=== PATIENT | female | born 1950 ===

== ENCOUNTER 2021-04-11 12:18 | Outpatient (CLI) | payer MEDICARE, BC, SELFPAY ==
[2021-04-11 12:45] LABS: Basophils Percent Auto 0.3 % (0.2-1.2); Eosinophils Absolute Auto 0.1 K/mm3 (0-0.3); Eosinophils Percent Auto 1.6 % (0-4.4); Hematocrit 39.5 % (37.0-47.0); Hemoglobin 13.1 g/dL (12.0-15.0); Immature Granulocyte Absolute 0.01 K/mm3 (0.00-0.031); Immature Granulocyte Percent A 0.3 % (0-0.5); Lymphocytes Absolute Auto 1.32 K/mm3 (0.9-3.2); Lymphocytes Percent Auto 35.9 % (18.3-44.2); Mean Corpuscular HGB Conc 33.2 g/dl (32-36); Mean Corpuscular Hemoglobin 30.3 pg (26-34); Mean Corpuscular Volume 91.4 fl (80-100); Mean Platelet Volume 10.2 fl (7.4-10.4); Monocytes Absolute Auto 0.4 K/mm3 (0.1-0.6); Monocytes Percent Auto 9.5 % (2.6-8.5); Neutrophils Absolute Auto 1.9 K/mm3 (1.3-6.7); Neutrophils Percent Auto 52.4 % (45.5-73.1); Platelet Count Result 234 k/mm3 (150-375); Red Blood Count 4.32 M/mm3 (4.2-5.4); Red Cell Distribution Width 12.9 % (11.5-14.5); White Blood Count 3.7 K/mm3 (4.5-10.0)
[2021-04-11 12:57] LABS: Alanine Aminotransferase 30 U/L (4-35); Albumin Level 4.5 g/dL (3.5-5.1); Alkaline Phosphatase 89 U/L (38-126); Anion Gap 4 mmol/L (8-16); Aspartate Amino Transferase 39 U/L (14-36); Bilirubin,Total 0.4 mg/dL (0.2-1.3); Blood Urea Nitrogen 11 mg/dL (7-17); Calcium 9.6 mg/dL (8.4-10.2); Carbon Dioxide 33 mmol/L (22-30); Chloride 100 mmol/L (98-107); Estimated Glomerular Filt Rate > 60; Glucose 104 mg/dL (65-110); Potassium 3.9 mmol/L (3.4-5.0); Sodium 137 mmol/L (137-145)
[2021-04-11 13:00] LABS: Iron 93 ug/dL (37-170)
[2021-04-11 13:09] LABS: Percent Iron Saturation 31 % (20-50)
[2021-04-11 14:15] LABS: Folic Acid > 20.0 ng/mL (2.76->20); Vitamin B12 > 1000.0 pg/mL (239-931)
[2021-04-13 19:08] LABS: Anti Nuclear Antibody Pattern Nuclear, Speckled
== END 2021-04-11 12:19 | disposition home or self-care (01) ==
LOC: ANHLAB 12:28
PROVIDERS: PCP Family Medicine; Visit Provider Internal Medicine Hematology & Oncology
DX: D64.9 Anemia, unspecified (principal); D72.819 Decreased white blood cell count, unspecified
CPT/HCPCS: 36415; 80053; 82607; 82728; 82746; 83540; 83550; 85025; 86038; 86039

== ENCOUNTER 2021-08-01 09:17 | Outpatient (CLI) | payer MEDICARE, BC, SELFPAY ==
--- NOTE | ~2021-08-01 | US_ITS ---
EXAMINATION: US abdomen complete DATE: 08/01/2021 10:03 INDICATION: Leukopenia TECHNIQUE: Multiple grayscale and Doppler ultrasound images of the abdomen were obtained. COMPARISON: None available FINDINGS: Bowel gas obscures visualization of the pancreas. The visualized portions of the pancreas a re unremarkable. The liver is normal with normal echogenicity and echotexture. No surface nodularity. Normal hepatopetal flow in the main portal vein. The gallbladder is normal with no abnormal wall thi ckening, pericholecystic fluid or stones. The normal common bile duct measures 3 mm. There was no son ographic Stover sign. The visualized portions of the aorta and inferior vena cava are normal. The right kidney measures 9.9 x 3.9 x 4.9 cm. The left kidney measures 9.9 x 4.8 x 4.3 cm. The kidney s demonstrate normal parenchymal echogenicity. There is no hydronephrosis. The spleen is normal in ap pearance and measures 8.1 cm. IMPRESSION: 1. No sonographic correlate for the patient's symptoms. Reviewed, dictated and finalized at location B.
== END 2021-08-01 09:18 | disposition home or self-care (01) ==
PROVIDERS: PCP Family Medicine; Visit Provider Internal Medicine Hematology & Oncology
DX: D72.819 Decreased white blood cell count, unspecified (principal)
CPT/HCPCS: 36415; 76700; 80053; 82607; 82728; 82746; 83540; 83550; 85025; 86038; 86039

== ENCOUNTER 2021-08-01 09:59 | Outpatient (CLI) | payer MEDICARE, BC, SELFPAY ==
[2021-08-01 10:24] LABS: Basophils Percent Auto 0.6 % (0.2-1.2); Eosinophils Percent Auto 1.2 % (0-4.4); Hematocrit 42.7 % (37.0-47.0); Hemoglobin 13.4 g/dL (12.0-15.0); Lymphocytes Absolute Auto 1.02 K/mm3 (0.9-3.2); Lymphocytes Percent Auto 30.4 % (18.3-44.2); Mean Corpuscular HGB Conc 31.4 g/dl (32-36); Mean Corpuscular Hemoglobin 30.2 pg (26-34); Mean Corpuscular Volume 96.4 fl (80-100); Mean Platelet Volume 10.6 fl (7.4-10.4); Monocytes Absolute Auto 0.3 K/mm3 (0.1-0.6); Monocytes Percent Auto 8.9 % (2.6-8.5); Neutrophils Percent Auto 58.9 % (45.5-73.1); Platelet Count Result 226 k/mm3 (150-375); Red Blood Count 4.43 M/mm3 (4.2-5.4); Red Cell Distribution Width 13.2 % (11.5-14.5); White Blood Count 3.4 K/mm3 (4.5-10.0)
[2021-08-01 12:59] LABS: Alanine Aminotransferase 22 U/L (4-35); Albumin Level 4.6 g/dL (3.5-5.1); Alkaline Phosphatase 100 U/L (38-126); Anion Gap 6 mmol/L (8-16); Aspartate Amino Transferase 37 U/L (14-36); Bilirubin,Total 0.3 mg/dL (0.2-1.3); Blood Urea Nitrogen 13 mg/dL (7-17); Calcium 9.3 mg/dL (8.4-10.2); Carbon Dioxide 31 mmol/L (22-30); Chloride 103 mmol/L (98-107); Estimated Glomerular Filt Rate > 60; Glucose 103 mg/dL (65-110); Potassium 3.8 mmol/L (3.4-5.0); Sodium 140 mmol/L (137-145)
[2021-08-01 13:09] LABS: Iron 99 ug/dL (37-170)
[2021-08-01 13:17] LABS: Percent Iron Saturation 32 % (20-50)
[2021-08-01 14:00] LABS: Folic Acid > 20.0 ng/mL (2.76->20)
[2021-08-04 11:07] LABS: Anti Nuclear Antibody Pattern Nuclear, Speckled
== END 2021-08-01 10:00 | disposition home or self-care (01) ==
LOC: ANHLAB 10:06
PROVIDERS: Visit Provider Internal Medicine Hematology & Oncology
DX: D64.9 Anemia, unspecified (principal); D72.819 Decreased white blood cell count, unspecified
CPT/HCPCS: 36415; 80053; 82607; 82728; 82746; 83540; 83550; 85025; 86038; 86039

== ENCOUNTER 2022-09-27 13:45 | Outpatient (CLI) | payer MEDICARE, BC, SELFPAY ==
--- NOTE | ~2022-09-27 | XR_ITS ---
EXAMINATION:XR cervical spine 4-5V DATE: 09/27/2022 14:15 INDICATION: Neck pain TECHNIQUE: AP, lateral, left and right oblique, lateral swimmers and odontoid views of the cervical s pine are provided. COMPARISON: None FINDINGS: 1-2 mm anterolisthesis C4 on C5 and 3 mm retrolisthesis C5 on C6, the latter contributing to mild luiza tral canal stenosis at this level. Odontoid is intact. Mild atlantoaxial osteoarthritis. Vertebral boo dy heights are normal. Moderate to severe disc height loss at C5-C6. There is moderate facet osteoart hritis on the right at C4-C5 and on the left at C3-C4 and C4-C5. Mild facet osteoarthritis at several additional levels on the left and right. There is severe uncovertebral osteoarthritis on the left an d moderate on the right at C5-C6. Mild uncovertebral osteoarthritis on the left at C4-C5. This contri butes to mild to moderate neural foraminal stenosis on the left at C5-C6 and mild on the left at C2-C 3 and C3-C4 and on the right at C3-C4 through C5-C6. Prevertebral soft tissues are normal. Visualized apices of lungs are clear. IMPRESSION: 1. 3 mm retrolisthesis C5 on C6 with moderate to severe associated disc height loss and uncovertebral osteoarthritis. 2. Mild spondylosis throughout the remainder of the cervical spine. Reviewed, dictated and finalized at location A.
== END 2022-09-27 13:46 | disposition home or self-care (01) ==
PROVIDERS: PCP Family Medicine; Visit Provider Family Medicine
DX: M54.2 Cervicalgia (principal); M85.88 Other specified disorders of bone density and structure, other site; M43.02 Spondylolysis, cervical region
CPT/HCPCS: 72050

== ENCOUNTER 2022-10-06 08:31 | Outpatient (CLI) | payer MEDICARE, BC, SELFPAY ==
--- NOTE | ~2022-10-06 | MR_ITS ---
EXAMINATION: MR cervical spine wo con DATE: 10/06/2022 09:32 INDICATION: Neck pain. TECHNIQUE: Magnetic resonance imaging (MRI) of the cervical spine was performed without intravenous c ontrast. COMPARISON: Cervical spine radiographs 09/27/2022, thyroid ultrasound 02/19/2018 FINDINGS: There are thyroid nodules measuring up to 13 mm, likely not clinically significant. There i s 2 mm anterolisthesis of C4 on C5 and 2 mm retrolisthesis of C5 on C6. Vertebral body heights are no rmal. There is mildly decreased disc height at C4-C5 and severely decreased disc height at C5-C6. The spinal cord signal intensity is normal. The following disc levels are specifically discussed: C2-C3: There is a central protrusion. There is no uncovertebral joint osteoarthritis. There is mild l eft facet joint osteoarthritis. There is no neural foraminal stenosis. There is no central canal sten osis. C3-C4: There is a central extrusion. There is no uncovertebral joint osteoarthritis. There is moderat e left facet joint osteoarthritis. There is mild left neural foraminal stenosis. There is no central canal stenosis. C4-C5: The disc is bulging. There is no uncovertebral joint osteoarthritis. There is severe right and mild left facet joint osteoarthritis. There is no neural foraminal stenosis. There is no central can al stenosis. C5-C6: The disc is bulging. There is severe bilateral uncovertebral joint osteoarthritis. There is mi ld bilateral facet joint osteoarthritis. There is moderate bilateral neural foraminal stenosis. There is no central canal stenosis. C6-C7: There is a central protrusion. There is no uncovertebral joint osteoarthritis. There is no fac et joint osteoarthritis. There is no neural foraminal stenosis. There is no central canal stenosis. C7-T1: The disc does not extend beyond the endplate margin. There is no uncovertebral joint osteoarth ritis. There is mild bilateral facet joint osteoarthritis. There is no neural foraminal stenosis. The re is no central canal stenosis. IMPRESSION: 1. Severe spondylosis at C5-C6 and mild spondylosis at other levels. Reviewed, dictated and finalized at location A.
== END 2022-10-06 08:32 | disposition home or self-care (01) ==
PROVIDERS: PCP Family Medicine; Visit Provider Family Medicine
DX: M54.2 Cervicalgia (principal); M43.02 Spondylolysis, cervical region
CPT/HCPCS: 72141

== ENCOUNTER 2024-07-31 08:13 | Outpatient (CLI) | payer MEDICARE, BC, SELFPAY ==
--- NOTE | ~2024-07-31 | US_ITS ---
US thyroid DATE: 07/31/2024 08:36 INDICATION: Nontoxic goiter TECHNIQUE: Real-time and color flow imaging of the thyroid gland COMPARISON: 02/04/2018 thyroid ultrasound FINDINGS: Right lobe: 5.7 x 2.0 x 2.0 cm right lobe dimension Heterogeneous echotexture and prominent increased vascularity 1.0 x 0.9 x 0.9 mm posterior mid to lower isoechoic circumscribed mass (TR 3); little interval change since 02/04/2018 Isthmus: 1.0 cm AP dimension Left lobe: 6.5 x 2.9 x 3.6 cm left lobe dimension Heterogeneous echotexture and prominent increased vascularity 1.7 x 1.5 x 1.1 cm posterior upper pole circumscribed hypoechoic mass (TR 4); this is stable in size, shape and echotexture since 02/04/2018 2.5 x 2.5 x 1.9 cm lower pole lobular hypoechoic mass with coarse calcifications (TR 5 highly suspici ous); this was measured at 1.9 x 2.2 x 1.9 cm on 02/04/2018. Ultrasound-guided fine-needle aspiration is recommended. IMPRESSION: Recommended ultrasound-guided fine-needle aspiration of lower pole left 2.5 cm TR 5 mass Reviewed, dictated and finalized at Location A. Reviewed, dictated and finalized at location A.
--- OUTSIDE RECORDS SUMMARY | 2024-07-31 08:23 | XMS_ITS | Clinical Summary ---
[facility] Address [address] [place] [address] Care Team Providers Care Spectroscopist Name Role Phone Eliud Cardoso MD Primary Care Provider [phone] Allergies No known active allergies Medications amLODIPine (NORVASC) 5 mg tablet Take 5 mg by mouth daily. Active valACYclovir (VALTREX) 500 mg tablet Take 500 mg by mouth 2 times daily. 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 Gender Identity Not on file Sexual Orientation Not on file Last Filed Vital Signs Vital Sign Reading Time Taken Comments Blood Pressure 158/92 08/18/2021 10:42 AM CDT Pulse 72 08/18/2021 10:42 AM CDT Temperature 36.4 C (97.5 F) 08/18/2021 10:42 AM CDT Respiratory Rate - - Oxygen Saturation 97% 08/18/2021 10:42 AM CDT Inhaled Oxygen Concentration - - Weight 59.9 kg (132 lb) 08/18/2021 10:42 AM CDT Height 157.5 cm (5' 2 ) 08/18/2021 10:42 AM CDT Body Mass Index 24.14 08/18/2021 10:42 AM CDT Plan of Treatment Health Maintenance Due Date Last Done Comments DTAP/TDAP/TD VACCINES (1 - Tdap) 01/01/1972 BREAST CANCER SCREENING 1992 COLORECTAL SCREENING 1997 Colorectal Cancer Screening 1997 FIT-DNA Q 3 years 1997 FIT/FOBT Q 1 year 1997 Flex Sig/CT Colonography Q 5 years 1997 PNEUMOCOCCAL VACCINE 50+ YEARS (1 of 1 - PCV) 01/01/20 03 ZOSTER VACCINE (1 of 2) 2002 OSTEOPOROSIS SCREENING 2017 INFLUENZA VACCINE (#1) 2023 RSV VACCINE (60+ or ) (1 - 1-dose 75+ series) 01/01/2028 Insurance MEDICARE PART A AND B Care Teams Spectroscopist Relationship Specialty Start Date End Date Eliud Cardoso MD [address] [place] [address] PCP - General Family Practice 04/11/21
== END 2024-07-31 08:14 | disposition home or self-care (01) ==
LOC: CHSIMG 08:14
PROVIDERS: PCP Family Medicine; Visit Provider Obstetrics & Gynecology
DX: E04.9 Nontoxic goiter, unspecified (principal)
CPT/HCPCS: 76536

== ENCOUNTER 2024-09-21 12:25 | Outpatient (CLI) | payer MEDICARE, BC, SELFPAY ==
--- NOTE | ~2024-09-21 | US_ITS ---
EXAMINATION: US FNA w image guidance DATE: 09/21/2024 13:18 INDICATION: Nontoxic thyroid goiter TECHNIQUE: A time-out was performed to verify the patient's name, date of , and procedure to be performed . The procedure and its benefits and risks were discussed with the patient. Risks specifically discus sed included bleeding and infection. The patient understood the risks and agreed to proceed. The neck was prepped and draped in the usual sterile manner. 2 mL 1% lidocaine was used for local anesthesia . 5 passes were made with a 25G needle into the lesion. Appropriate needle location was documented with continuous sonographic guidance. A sterile bandage was applied. There were no immediate compli cations. FINDINGS: Grayscale ultrasound images demonstrate biopsy needles advanced into a 3 cm solid hypoechoic nodule w ith lobular margins and with coarse shadowing internal calcifications at the junction of the left thy roid lobe and thyroid isthmus. IMPRESSION: 1. Successful ultrasound-guided fine needle aspiration of a 3 cm TI RADS 5 nodule at the junction of the left thyroid lobe and isthmus. Reviewed, dictated and finalized at location A. IMPRESSION: 1. Successful ultrasound-guided fine needle aspiration of a 3 cm TI RADS 5 nod ule at the junction of the left thyroid lobe and isthmus.
--- OUTSIDE RECORDS SUMMARY | 2024-09-21 12:32 | XMS_ITS | Clinical Summary ---
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 Gender Identity Not on file Sexual Orientation [...] Comments DTAP/TDAP/TD VACCINES (1 - Tdap) 01/01/1972 COLORECTAL SCREENING 1997 Colorectal Cancer Screening 1997 FIT-DNA Q 3 years 1997 FIT/FOBT Q 1 year 1997 Flex Sig/CT Colonography Q 5 years 1997 PNEUMOCOCCAL VACCINE 50+ YEARS (1 of 1 - PCV) 01/01/20 03 ZOSTER VACCINE (1 of 2) 2002 OSTEOPOROSIS SCREENING 2017 BREAST CANCER SCREENING 01/20/2022 01/20/2021 INFLUENZA VACCINE (#1) 2023 RSV VACCINE (60+ or ) (1 - 1-dose 75+ series) 01/01/2028 Insurance [facility] BLUE ACCESS/TRUE BLUE PPO MEDICARE PART A AND B Care Teams Machine Lay Out Worker Relationship Specialty Start Date End Date Eliud Cardoso MD [address] [place] [address] PCP - General Family Practice 04/11/21
== END 2024-09-21 12:26 | disposition home or self-care (01) ==
PROVIDERS: PCP Family Medicine; Visit Provider Otolaryngology
DX: E04.1 Nontoxic single thyroid nodule (principal)
CPT/HCPCS: 10005; 88172; 88173; 88177; 88305

== ENCOUNTER 2025-02-20 12:07 | Outpatient (CLI) | payer MEDICARE, BC, SELFPAY ==
--- OUTSIDE RECORDS SUMMARY | 2024-10-22 09:00 | XMS_ITS ---
Author Organization [facility] Address [address] [place], [place] [id number] Care Team Providers Care Ripening Room Hand Name Role Phone LOTUS SWAIN Unavailable [phone] Eliud Cardoso Unavailable Unavailable Allergies No Known Allergies REASON FOR VISIT Painful spot on bottom of foot Medications Medication SIG (Take, Route, Frequency, Duration) Notes Start Date End Date Status amLODIPine Benzoate 1 MG/ML 5 mL Orally Once a day Activ e Vital Signs Height 62.00 in 10/22/2024 Weight 140 lbs 10/22/2024 BMI 25.6 kg/m2 10/22/2024 Height-cm 157.48 cm 10/22/2024 Weight-kg 63.5 kg 10/22/2024 Encounters Encounter Location Date Provider Diagnosis [address] [id number] 10/22/2024 LOTUS SWAIN Hallux valgus (acquired), right foot M20.11 ; Acquired keratoderma L85.1 and Pain in right foot M79.671 Assessments Encounter Date Diagnosis (ICD Code) Assessment Notes Treatment Notes Treatment Clinical Notes Section Notes 10/22/2024 Hallux valgus (acquired), right foot (ICD-10 - M20.11) 10/22/2024 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) 10/22/2024 Pain in right foot (ICD-10 - M79.671) Plan Of Treatment No Information Progress Notes * DIEGO WINSLOW MDOB:1950 (74 yo F)Acc No.[id number]:10/22/2024 Progress Notes Patient: DIEGO CROCKETT Provider: Andrzej SWAIN :1950 A ge:73 Y S ex:Female Date:10/22/2024 Address:[address] [place], [place] [id number] Subjective: * Chief Complaints: * 1 . Painful spot on bottom of foot. * HPI: H PI: New Complaint P atient was last seen in our practice over three years ago., Patient complains of an issue to a bump under the right 5th digit. Patient states that her old orthotics might be the cause of the bump. She is interested in getting new orthotics. , MA: [facility]. * ROS: G eneral / Constitutional: Patient denies f atigue, chills, fever. P atient complains of p ain. M usculoskeletal: Patient denies n euroma, high arch feet/ cavus. P atient complains of j oint stiffness. P eripheral Vascular: Patient denies b lood clots in legs, ulceration of feet.? S kin: Patient denies u lcerations. P atient complains of s pot on bottom of foot. N eurologic: Patient denies l oss of strength. * Medical History: N o Reported Medical History.Medical History Verified. * Surgical History: H ysterectomy . * Hospitalization/Major Diagno stic Procedure: D enies Past Hospitalization. * Family History: F ather: PRN - Father: . M other: PRN - Mother: . B rother: SIB - Brother: . S ister: SIB - Sister: . * Social History: M igrated Social History: M igrated Social History: History of tobacco use : , Smoking Status : Never smoked. * Medications: T aking amLODIPine Benzoate 1 MG/ML Suspension 5 mL Orally Once a day , Medication List reviewed and reconciled with the patient * Allergies: N .K.D.A. Objective: * Vitals: S hoe Size: 9, Wt:140lbs, Wt-k.5 kg, Ht: 62.00 in, Ht-cm: 157.48 cm, BMI:25.6Index, Body Surface Area: 1.67. * Examination: C onstitutional: Constitutional T he patient is awake, alert, well developed, well groomed and well nourished. D ermatologic: Skin findings: b ilateral, Skin is thin, atrophic and lacking pedal hair. M usculoskeletal: Muscle Strength M uscle strength is 5/5 in regards to dorsiflexion, plantarflexion, inversion, and eversion in bilateral lower extremities. ? N eurologic: Gross sensation G ross sensation is intact to light touch..? V ascular: Dorsalis pedis pulse: b ilateral, 1/. Posterior tibial pulse: b ilaterally, 05/16. Capillary refill: b ilaterally, greater than 3 seconds.? Assessment: * Assessment: 1. H allux valgus (acquired), right foot - M20.11 (Primary) 2 . A cquired keratoderma - L85.1 3 . P ain in right foot - M79.671 Plan: * Treatment: * Billing Information: * Visit Code: 54752 Office Visit, New Pt., Level 3. * Procedure Codes: * Electronic signature of NELI SWAIN DPM on 02/20/2025 at 12:11 PM CDT Sign off status: Pending * Provider: Andrzej SWAIN Date: 0 10/22/2024 Generated for Vamshi lemon/Funmilayo/Primo on: 1 12:11 PM CDT History and Physical Notes * HPI (History of Present Illness) Category Sub-Category Detail Notes Category Not es HPI New Complaint Patient was last seen in our practice over three years ago., Patient complains of an issue to a bump under the right 5th digit. Patient states that her old orthotics might be the cause of the bump. She is interested in getting new orthotics. , MA: [facility] Examination Category Sub-Category Detail Notes Category Not es Constitutional Constitutional The patient is a wake, alert, well developed, well groomed and well nourished Dermatologic Skin findings: bilateral, Skin is thin, atrophic and lacking pedal hair Musculoskeletal Muscle Strength Muscle strength is 5/5 in regards to dorsiflexion, plantarflexion, inversion, and eversion in bilateral lower extremities Neurologic Gross sensation Gross sensation is intact to light touch. Vascular Dorsalis pedis pulse: bilateral, 1/4 Posterior tibial pulse: bilaterally, 1/4 Capillary refill: bilaterally, greater than 3 seconds
--- NOTE | ~2025-02-20 | MR_ITS ---
EXAMINATION: MR brain/brain stem wo/w con DATE: 02/20/2025 12:57 INDICATION: Memory loss. TECHNIQUE: Magnetic resonance imaging (MRI) of the brain and brainstem was performed without and with 10 mL MultiHance intravenous contrast. COMPARISON: None. FINDINGS: There is no intracranial hemorrhage, acute infarction, or abnormal intracranial mass lesion. The ventricles are normal in size. The orbits are normal. There is mild mucosal thickening in the paranasal sinuses. The mastoid air cells are normal. IMPRESSION: 1. Moderate nonspecific cerebral white matter disease, which likely represents chronic small vessel ischemic disease. Reviewed, dictated and finalized at location E.
--- OUTSIDE RECORDS SUMMARY | 2025-02-20 12:11 | XMS_ITS | Encounter Summary ---
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
--- OUTSIDE RECORDS SUMMARY | 2025-02-20 12:11 | XMS_ITS | Clinical Summary ---
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
--- OUTSIDE RECORDS SUMMARY | 2025-02-20 12:11 | XMS_ITS | Clinical Summary ---
Author Organization [facility] Address [address] [place] [address] Care Team Providers Care Casework Manager Name Role Phone Eliud Cardoso MD Primary Care Provide r Allergies No known active allergies Medications amLODIPine (NORVASC) 5 mg tablet Take 1 tablet (5 mg total) by mouth daily Active valACYclovir (VALTREX) 500 mg tablet Take 1 tablet (500 mg total) by mouth 2 (two) times a day Active Active Problems No known active problems Encounters Date Type Department Care Team Description 02/02/2025 10:04 AM CDT - 02/02/2025 11:59 PM CDT Hospital Encounter [facility] [address] [place] [address] [id number] Screening mammogram, encounter for Discharge Disposition: Discharge to home or self care from Last 3 Months Surgical History Surgery Date Site/Laterality Comments HYSTERECTOMY OOPHORECTOMY THYROID SURGERY Family History Medical History Relation Name Comments Breast cancer Father's Sister placido Ovarian cancer Neg Hx Thyroid cancer Neg Hx Relation Name Status Comments Father's Sister placido Social History Tobacco Use Types Packs/Day Years Used Date Smoking Tobacco: Never Smokeless Tobacco: Never Tobacco Cessation:Counseling Given: Not Answered Comments No Sex and Gender Information Value Date Recorded Sex Assigned at Not on file 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 Gender Identity Not on file Sexual Orientation Not on file Obstetrics History Para Term AB IAB SAB Ectopic Multiple Livin g Live Births 2 2 2 Date Outcome GA Total Labor Labor/2nd/3rd Weight Sex Type Anes PTL Morenita A1 A5 Name Clin Term Term Last Filed Vital Signs Vital Sign Reading Time Taken Comments Blood Pressure - - Pulse - - Temperature - - Respiratory Rate - - Oxygen Saturation - - Inhaled Oxygen Concentration - - Weight 54 kg (119 lb) 02/02/2025 10:23 AM CDT Height 154.9 cm (5' 1) 01/31/2024 9:38 AM CDT Body Mass Index 22.48 01/31/2024 9:38 AM CDT Plan of Treatment Health Maintenance Due Date Last Done Comments Colon Cancer Screening-Colonoscopy 1950 Depression Screening 1950 Fall Risk Assessment 1950 Hepatitis C Screening 1950 DTaP/Tdap/Td Vaccine (1 - Tdap) 01/01/1964 Hepatitis B Screening 1970 Zoster Vaccine (1 of 2) 2002 Well Visit 65+ 2017 Influenza Vaccine (#1) 2025 9, 02/12/2018, 02/13/2017, Additional history exists Osteoporosis Screening-Bone Density Scan 01/30/2026 01/31/2024, 01/26/2022, 01/15/2020, Additional history exists Breast Cancer Screening-Mammogram 02/02/2026 02/02/2025, 01/31/2024, 01/29/2023, Additional history exists Pneumococcal vaccine 65+ Completed 02/26/2019, 07/2017 Procedures Procedure Name Priority Date/Time Associated Diagnosis Comments SCREENING MAMMOGRAM BILATERAL W CARLOS Schedule Routine, Read Routine (OP Routine) 02/02/2025 10:27 AM CDT Screening mammogram, encounter for DEXA AXIAL SKELETON BONE DENSITY 1 OR MORE SITES Schedule Routine, Read Routine (OP Routine) 01/31/2024 9:36 AM CDT Asymptomatic menopausal state from Last 3 Months or Most Recently Relevant to Health Maintenance Results * Screening Mammogram Bilateral W Carlos (02/02/2025 10:27 AM CDT) Anatomical Region Laterality Modality Breast Bilateral Mammography Impressions 02/03/2025 2:40 PM CDT Bilateral No evidence of malignancy in either breast. OVERALL BI-RADS FINAL ASSESSMENT: 1 - Negative RECOMMENDATION: Recommend bilateral annual screening mammography. Narrative 02/03/2025 2:40 PM CDT EXAMINATION: Screening Mammogram Bilateral W Carlos: 02/02/2025 COMPARISON: Relevant prior studies available at the time of interpretation were reviewed, including the most recent mammogram on: 01/31/2024. TECHNIQUE: Mammography was performed with 2D and 3D digital breast tomosynthesis (DBT) images. CAD was utilized. BREAST PARENCHYMAL COMPOSITION: There are scattered areas of fibroglandular density. FINDINGS: Bilateral There is no suspicious mass, calcification, or architectural distortion in either breast. 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 LEFT HIP: Total BMD is 0.708 g/cm2 T-score is -1.9 This is decrease in comparison to prior exam which is not statistically significant. Femoral neck BMD is 0.597 g/cm2 T-score is -2.3 FRAX: 10 year risk for a major osteoporotic fracture is 13 %, 10 year risk for a hip fracture is 3.0 % IMPRESSION: Low Bone Mass. REFERENCE: Bone mineral density: T-Score: Normal (T-score above or = -1.0) Low bone mass (T-score between -1.0 and -2.5) replaces the previously used term osteopenia Osteoporosis (T-score = or below -2.5) Z-Score: Within the expected range for age (Z-score above -2.0) Below the expected range for age (Z-score is -2.0 or below) Please see below follow up recommendations. Medical evaluation for secondary causes of low bone mineral density may be appropriate. FRAX is a World Health Organization validated fracture risk assessment tool that calculates a person's 10 year probability of a major osteoporosis related fracture and hip fracture. According to the National Osteoporosis Foundation guidelines, postmenopausal women and men age 50 or older with low bone mass and a 10 year probability of a major osteoporosis related fracture = or greater than 20% or a 10 year probability of a hip fracture = or greater than 3% should be considered for pharmacological treatment for the prevention of osteoporosis. For further information, including treatment recommendations, please refer to the 2019 ISCD Official Positions (http://www.iscd.org) and the NOF's Clinician's Guide to Prevention and Treatment of Osteoporosis (http://www.nof.org/professionals/clinical-guidelines) THIS IS AN ELECTRONICALLY VERIFIED FINAL REPORT 01/31/2024 8:38 PM - Electronically signed by Delio Carroll M.D. 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 LEFT HIP: Total BMD is 0.708 g/cm2 T-score is -1.9 This is decrease in comparison to prior exam which is not statistically significant. Femoral neck BMD is 0.597 g/cm2 T-score is -2.3 FRAX: 10 year risk for a major osteoporotic fracture is 13 %, 10 year risk for ahip fracture is 3.0 % IMPRESSION: Low Bone Mass. REFERENCE: Bone mineral density: T-Score: Normal (T-score above or = -1.0) Low bone mass (T-score between -1.0 and -2.5) replaces thepreviously used term osteopenia Osteoporosis (T-score = or below -2.5) Z-Score: Within the expected range for age (Z-score above -2.0) Below the expected range for age (Z-score is -2.0 or below) Please see below follow up recommendations. Medical evaluation forsecondary causes of low bone mineral density may be appropriate. FRAX is a World Health Organization validated fracture risk assessmenttool that calculates a person's 10 year probability of a major osteoporosisrelated fracture and hip fracture. According to the National OsteoporosisFoundation guidelines, postmenopausal women and men age 50 or older with low bonemass and a 10 year probability of a major osteoporosis related fracture = or greater than 20% or a 10 year probability of a hip fracture = or greaterthan 3% should be considered for pharmacological treatment for the preventionof osteoporosis. For further information, including treatment recommendations, please referto the 2019 ISCD Official Positions (http://www.iscd.org) and the NOF's Clinician's Guide to Prevention and Treatment of Osteoporosis (http://www.nof.org/professionals/clinical-guidelines) THIS IS AN ELECTRONICALLY VERIFIED FINAL REPORT 01/31/2024 8:38 PM - Electronically signed by Delio Carroll M.D. MF: [email or web address] Report ID: [id number] Reading Location: [id number] Omari Stiles MD IMG DXA PROCEDURES Final Re sult from Last 3 Months or Most Recently Relevant to Health Maintenance Insurance MEDICARE [employer] MEDICARE [employer] MEDICARE [facility] Address: [id number] [place] [address] [facility] Care Teams Casework Manager Relationship Specialty Start Date End Date Eliud Cardoso MD [address] [place] [address] PCP - General 01/26/22
--- OUTSIDE RECORDS SUMMARY | 2025-02-20 12:11 | XMS_ITS | Encounter Summary ---
Author Organization [facility] Healthcare Address [address] [place] [address] Care Team Providers Care Qa Automation Architect Name Role Phone Wyatt Schultz MD Primary Care Provider [phone]- [phone] Eliud Cardoso MD Primary Care Provide r Reason for Visit * Reason Onset Date Comments Scheduling Appointments 01/19/2021 confirmi ng mammogram appt Encounter Details Date Type Department Care Team (Late st Contact Info) Description 01/19/2021 Telephone [facility] [address] [place] [address] Rose Smith RT Scheduling Appointments (confirming mammogram appt) Social History Tobacco Use Types Packs/Day Years Used Date Smoking Tobacco: Never Assessed Comments No Sex and Gender Information Value Date Recorded Sex Assigned at Not on file 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
--- OUTSIDE RECORDS SUMMARY | 2025-02-20 12:11 | XMS_ITS | Encounter Summary ---
Author Organization [facility] Healthcare Address [address] [place] [address] Care Team Providers Care Automotive Collision Repair Instructor Name Role Phone Wyatt Schultz MD Primary Care Provider [phone]- [phone] Eliud Cardoso MD Primary Care Provide r Reason for Visit * Reason Onset Date Comments Scheduling Appointments 01/14/2020 Called f or DEXA appointment reminder Encounter Details Date Type Department Care Team ([facility] Contact Info) Description 01/14/2020 Telephone [facility] [address] [place] [address] Danii Do RT Scheduling Appointments (Called for DEXA appointment reminder) Social History Tobacco Use Types Packs/Day Years Used Date Smoking Tobacco: Never Assessed Comments No Sex and Gender Information Value Date Recorded Sex Assigned at Not on file 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
--- OUTSIDE RECORDS SUMMARY | 2025-02-20 12:11 | XMS_ITS | Patient Health Record ---
Author Organization [facility] Address [address] [place], [place] [id number] Care Team Providers Care Skein Mercerizing Machine Operator Name Role Phone BRYNN LOTUS Unavailable [phone] Eliud Cardoso Unavailable Unavailable Allergies No Known Allergies Reason For Referral No Information Medications Medication SIG (Take, Route, Frequency, Duration) Notes Start Date End Date Status amLODIPine Benzoate 1 MG/ML 5 mL Orally Once a day Activ e Vital Signs Height-cm 157.48 cm 10/22/2024 Weight-kg 63.5 kg 10/22/2024 Height 62.00 in 10/22/2024 Weight 140 lbs 10/22/2024 BMI 25.6 kg/m2 10/22/2024 Encounters Encounter Location Date Provider Diagnosis [address] [id number] 10/22/2024 LOTUS [facility]WAIN Hallux valgus (acquired), right foot M20.11 ; Acquired keratoderma L85.1 and Pain in right foot M79.671 Assessments Encounter Date Diagnosis (ICD Code) Assessment Notes Treatment Notes Treatment Clinical Notes Section Notes 10/22/2024 Hallux valgus (acquired), right foot (ICD-10 - M20.11) 10/22/2024 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) 10/22/2024 Pain in right foot (ICD-10 - M79.671) Plan Of Treatment No Information Insurance Providers Payer Name Payer Address Payer Phone Subscriber Number Group Number Insured Name Patient Relationship to Insured Coverage Start Date Coverage End Date Medicare Part B [id number] [place] [address] [id number] NONE DIEGO WIN[place]OW Self - patient is the insured [facility] ([facility] ATTN CLAIMS [address] [place] [address] [id number] DIEGO WINSLOW Self - patient is the insured [facility] [place] [address] [place], [place] [id number] DIEGO [place] Self - patient is the insured Medical (General) History Surgical History Surgery Date(Month/Year) Hysterectomy
== END 2025-02-20 12:08 | disposition home or self-care (01) ==
LOC: CHSIMG 12:09
PROVIDERS: PCP Family Medicine; Visit Provider Family Medicine
DX: G31.84 Mild cognitive impairment of uncertain or unknown etiology (principal); R90.82 White matter disease, unspecified
CPT/HCPCS: 70553; A9577